=== PATIENT | male | born 1940 | race Caucasian/White ===

== ENCOUNTER 2016-11-23 14:59 | Emergency (ER) | payer BC, OTHER ==
[2016-11-23 13:54] LABS: BASOPHILS 1.3 %; EOSINOPHILS 4.1 %; EOSINOPHILS ABSOLUTE 0.31 10/3/uL (0.0-0.53); ER CBC TAT 0 Hrs 03 Mins; HEMATOCRIT 37.1 % (40.0-51.0); HEMOGLOBIN 12.9 g/dL (13.6-17.8); IMMATURE GRANULOCYTES 0.3 %; IMMATURE GRANULOCYTES ABSOLUTE 0.02 10/3/uL (0.0-0.11); LYMPHOCYTES 25.8 %; LYMPHOCYTES ABSOLUTE 1.93 10/3/uL (0.67-4.30); MEAN CORPUS HGB CONC 34.8 g/dL (32.0-36.0); MEAN CORPUSCULAR HEMOGLOB 30.6 pg (26.0-34.0); MEAN CORPUSCULAR VOLUME 87.9 fL (80-100); MEAN PLATELET VOLUME 11.3 fL (9.2-13.0); MONOCYTES 5.6 %; MONOCYTES ABSOLUTE 0.42 10/3/uL (0.21-1.20); NEUTROPHILS 62.9 %; NEUTROPHILS ABSOLUTE 4.71 10/3/uL (2.02-8.40); PLATELET COUNT 179 10/3/uL (150-400); RBC DISTRIBUTION WIDTH 13.2 % (12.0-16.0); RED CELL COUNT 4.22 10/6/uL (4.7-6.1); WHITE BLOOD CELLS 7.5 10/3/uL (4.5-10.5)
[2016-11-23 13:55] LABS: MANUAL DIFF NO %
[2016-11-23 14:03] LABS: INTERNATIONAL NORMAL RATI 2.8 UNITS (-); PARTIAL THROMBO TIME 34.2 SEC (22.5-37.2); PROTIME (NOT ORD) 29.5 SEC (12.0-14.5)
[2016-11-23 14:17] LABS: BUN (BLOOD UREA NITROGEN) 8 MG/DL (6-23); CALCIUM, SERUM 9.2 MG/DL (8.5-10.4); CHEST PAIN PROFILE TAT 0 Hrs 26 Mins; CHLORIDE, SERUM 109 MMOL/L (96-112); CO2 (CARBON DIOXIDE) 28 MMOL/L (24-34); CREATININE 0.74 MG/DL (0.70-1.30); GFR AFRICAN AMERICAN 104 ML/MIN (>=60); GFR NON AFRICAN AMERICAN 90 ML/MIN (>=60); GLUCOSE, SERUM 124 MG/DL (60-99); POTASSIUM, SERUM 3.5 MMOL/L (3.5-5.3); SODIUM, SERUM 144 MMOL/L (135-148); TROPONIN I <0.02 NG/ML (<0.05)
[~2016-11-23 14:59] MED LIST: ACARBOSE50 MG OR; ACET500CAP PO; ALBUTEROL INHALER; AMB5 PO; ANTIVERT50 MG PO; ASAB PO; B1100 PO; BIST PO; C2 PO; CAPSAICIN TOP; CARD120 PO; CARDCD240 PO; CELEXA20 PO; CELEXA40 MG PO; CLA1000 MG PO; COREG12 PO; COUMADIN4 MG PO; CRESTOR20 MG PO; CRESTOR40 MG PO; D.O.S.100 MG PO; DRAMAMINE25 MG PO; ERYTHROMYCIN O3.5 G1 OPH; FLEX PO; FLOMAX4 PO; FLONASE NAS; FOLIC PO; FORTAMET1000 MG PO; FOSINOPRIL PO; FOSINOPRIL10 MG PO; GLUCOPHAGE1000 MG PO; GLUCOSE TAB PO; GLUCOTRO10 PO; GLUCPH PO; HALF81 PO; HERBS; HUMULIN N1 ML SC; IMDUR30 PO; INSNOV7030 SC; ISORDIL10 PO; JANTOVEN2.5 MG; JANTOVEN4 MG PO; KDUR20 PO; KLOR-CON M2020 MEQ PO; L20 PO; LANTUS SC; LIPITOR80 MG PO; LOP100 PO; LOP50 PO; LORT7 PO; MCZ125 PO; MCZ25 PO; MICRO-K10 MEQ PO; MONO10 PO; MONO20 PO; MONOKET PO; MULTIPLE VIT PO; NASAREL29 MCG NAS; NEUR300 PO; NITROSTAT0.4 MG SL; NORCO1 TAB PO; NORV5 PO; NOVOLOGMIX SC; NTG150 SL; PERI-COLACE1 TAB PO; PROAIR HFA INH; PROVHFA INH; SENNA PO; SENOKOTS PO; STOOL SOFTEN100 MG PO; SULAR PO; T PO; TEARS PLUS OPH; TEARS PURE OPH; TIGER BALM TOP; TRAZ100 PO; TRAZ50 PO; TRIXAICIN EX; VITAMINS; VITD PO; VOLTAREN1 % TOP; ZANTAC 150 PO; ZANTAC300 MG PO; ZOCOR40 PO; ZOL100 PO; ZYRTEC ALLGY10 MG PO; [UNRECOGNIZED DRUG - OTHER]; [UNRECOGNIZED DRUG - OTHER] OPH; [UNRECOGNIZED DRUG - OTHER] TOP
[2016-12-14] MEDS ORDERED: MULTIVIT/MIN PO (21:01)
[2016-12-14] MEDS ORDERED: VITAMIN D31000 UNIT PO (21:02)
[2016-12-14] MEDS ORDERED: ZOL100 PO (21:02)
[2016-12-14] MEDS ORDERED: HALF81 PO (21:02)
[2016-12-14] MEDS ORDERED: NORCO1 TAB PO (21:02)
[2016-12-14] MEDS ORDERED: MCZ25 PO (21:02)
[2016-12-14] MEDS ORDERED: DSS PO (21:03)
[2016-12-14] MEDS ORDERED: IMDUR30 PO (21:03)
[2016-12-14] MEDS ORDERED: COREG12 PO (21:03)
[2016-12-14] MEDS ORDERED: ZYRTEC ALLGY10 MG PO (21:03)
[2016-12-14] MEDS ORDERED: SENTAB PO (21:03)
[2016-12-14] MEDS ORDERED: CRESTOR20 MG PO (21:04)
[2016-12-14] MEDS ORDERED: LANTUS SC (21:04)
[2016-12-14] MEDS ORDERED: KLOR-CON M2020 MEQ PO (21:04)
[2016-12-14] MEDS ORDERED: FLONASE NAS (21:05)
[2016-12-14] MEDS ORDERED: NITROSTAT0.4 MG SL (21:05)
[2016-12-14] MEDS ORDERED: NEUR300 PO (21:05)
[2016-12-14] MEDS ORDERED: REFRESH OPH (21:06)
[2016-12-14] MEDS ORDERED: PROVHFA INH (21:06)
[2016-12-14] MEDS ORDERED: ACET500CAP PO (21:06)
[2016-12-14] MEDS ORDERED: COUMADIN6 MG PO (21:07)
[2016-12-14] MEDS ORDERED: C1 PO (21:07)
[2016-12-16] MEDS ORDERED: MUCINEX600 MG PO (17:52)
[2016-12-16] MEDS ORDERED: VOLTAREN1 % TOP (17:55)
[2017-03-20] MEDS ORDERED: COUMADIN6 MG PO (20:18)
[2017-03-20] MEDS ORDERED: CRESTOR20 MG PO (20:19)
[2017-03-20] MEDS ORDERED: IMDUR60 PO (20:20)
[2017-03-20] MEDS ORDERED: NORV10 PO (20:20)
[2017-03-20] MEDS ORDERED: AT25 PO (20:23)
[2017-03-21] MEDS ORDERED: NORCO1 TA1 PO (15:07)
== END 2016-11-23 15:40 | disposition home or self-care (01) ==
LOC: ER 14:59
PROVIDERS: Nurse Practitioner Acute Care
DX: R07.89 Other chest pain (principal); I10 Essential (primary) hypertension; E11.9 Type 2 diabetes mellitus without complications; I48.91 Unspecified atrial fibrillation; Z95.1 Presence of aortocoronary bypass graft; Z88.0 Allergy status to penicillin; Z88.8 Allergy status to other drugs, medicaments and biological substances; Z79.01 Long term (current) use of anticoagulants; Z79.82 Long term (current) use of aspirin; Z79.4 Long term (current) use of insulin; Z79.899 Other long term (current) drug therapy
CPT/HCPCS: 71010; 80048; 83735; 84484; 85025; 85610; 85730; 93005; 99285

== ENCOUNTER 2016-11-24 00:54 | Emergency (ER) | payer OTHER, BC ==
[2016-11-24 00:51] LABS: BASOPHILS 1.6 %; BASOPHILS ABSOLUTE 0.12 10/3/uL (0.0-0.16); EOSINOPHILS 3.8 %; EOSINOPHILS ABSOLUTE 0.29 10/3/uL (0.0-0.53); ER CBC TAT 0 Hrs 04 MinsNP; HEMATOCRIT 38.7 % (40.0-51.0); HEMOGLOBIN 13.6 g/dL (13.6-17.8); IMMATURE GRANULOCYTES 0.1 %; IMMATURE GRANULOCYTES ABSOLUTE 0.01 10/3/uL (0.0-0.11); LYMPHOCYTES 43.4 %; LYMPHOCYTES ABSOLUTE 3.35 10/3/uL (0.67-4.30); MANUAL DIFF NO %; MEAN CORPUS HGB CONC 35.1 g/dL (32.0-36.0); MEAN CORPUSCULAR HEMOGLOB 30.7 pg (26.0-34.0); MEAN CORPUSCULAR VOLUME 87.4 fL (80-100); MEAN PLATELET VOLUME 11.3 fL (9.2-13.0); MONOCYTES 6.3 %; MONOCYTES ABSOLUTE 0.49 10/3/uL (0.21-1.20); NEUTROPHILS 44.8 %; NEUTROPHILS ABSOLUTE 3.46 10/3/uL (2.02-8.40); PLATELET COUNT 190 10/3/uL (150-400); RBC DISTRIBUTION WIDTH 13.1 % (12.0-16.0); RED CELL COUNT 4.43 10/6/uL (4.7-6.1); WHITE BLOOD CELLS 7.7 10/3/uL (4.5-10.5)
[2016-11-24 01:08] LABS: ALBUMIN 3.8 G/DL (3.5-5.0); ALKALINE PHOSPHATASE 100 U/L (45-117); CALCIUM, SERUM 9.6 MG/DL (8.5-10.4); CHEST PAIN PROFILE TAT 0 Hrs 21 Mins; CHLORIDE, SERUM 107 MMOL/L (96-112); CO2 (CARBON DIOXIDE) 25 MMOL/L (24-34); CREATININE 0.96 MG/DL (0.70-1.30); DIRECT BILIRUBIN 0.1 MG/DL (0.0-0.4); GFR AFRICAN AMERICAN 89 ML/MIN (>=60); GFR NON AFRICAN AMERICAN 76 ML/MIN (>=60); INDIRECT BILIRUBIN(NOT ORDER) 0.5 MG/DL (0.1-0.9); POTASSIUM, SERUM 3.5 MMOL/L (3.5-5.3); SGOT(AST) 17 U/L (5-40); SGPT(ALT) 15 U/L (5-65); SODIUM, SERUM 141 MMOL/L (135-148); TOTAL BILIRUBIN 0.6 MG/DL (0-1.2); TOTAL PROTEIN 7.2 G/DL (6.0-8.5); TROPONIN I <0.02 NG/ML (<0.05)
[2016-11-24 01:09] LABS: BUN (BLOOD UREA NITROGEN) 12 MG/DL (6-23); GLUCOSE, SERUM 189 MG/DL (60-99)
[2016-12-14] MEDS ORDERED: MULTIVIT/MIN PO (21:01)
[2016-12-14] MEDS ORDERED: VITAMIN D31000 UNIT PO (21:02)
[2016-12-14] MEDS ORDERED: NORCO1 TAB PO (21:02)
[2016-12-14] MEDS ORDERED: HALF81 PO (21:02)
[2016-12-14] MEDS ORDERED: ZOL100 PO (21:02)
[2016-12-14] MEDS ORDERED: MCZ25 PO (21:02)
[2016-12-14] MEDS ORDERED: DSS PO (21:03)
[2016-12-14] MEDS ORDERED: SENTAB PO (21:03)
[2016-12-14] MEDS ORDERED: IMDUR30 PO (21:03)
[2016-12-14] MEDS ORDERED: ZYRTEC ALLGY10 MG PO (21:03)
[2016-12-14] MEDS ORDERED: COREG12 PO (21:03)
[2016-12-14] MEDS ORDERED: KLOR-CON M2020 MEQ PO (21:04)
[2016-12-14] MEDS ORDERED: CRESTOR20 MG PO (21:04)
[2016-12-14] MEDS ORDERED: LANTUS SC (21:04)
[2016-12-14] MEDS ORDERED: NITROSTAT0.4 MG SL (21:05)
[2016-12-14] MEDS ORDERED: NEUR300 PO (21:05)
[2016-12-14] MEDS ORDERED: FLONASE NAS (21:05)
[2016-12-14] MEDS ORDERED: PROVHFA INH (21:06)
[2016-12-14] MEDS ORDERED: ACET500CAP PO (21:06)
[2016-12-14] MEDS ORDERED: REFRESH OPH (21:06)
[2016-12-14] MEDS ORDERED: C1 PO (21:07)
[2016-12-14] MEDS ORDERED: COUMADIN6 MG PO (21:07)
[2016-12-16] MEDS ORDERED: MUCINEX600 MG PO (17:52)
[2016-12-16] MEDS ORDERED: VOLTAREN1 % TOP (17:55)
[2017-03-20] MEDS ORDERED: COUMADIN6 MG PO (20:18)
[2017-03-20] MEDS ORDERED: CRESTOR20 MG PO (20:19)
[2017-03-20] MEDS ORDERED: IMDUR60 PO (20:20)
[2017-03-20] MEDS ORDERED: NORV10 PO (20:20)
[2017-03-20] MEDS ORDERED: AT25 PO (20:23)
[2017-03-21] MEDS ORDERED: NORCO1 TA1 PO (15:07)
== END 2016-11-24 03:00 | disposition home or self-care (01) ==
LOC: ER 00:54
PROVIDERS: Nurse Practitioner Acute Care
DX: K80.80 Other cholelithiasis without obstruction (principal); I10 Essential (primary) hypertension; K21.9 Gastro-esophageal reflux disease without esophagitis; F32.9 Major depressive disorder, single episode, unspecified; E11.9 Type 2 diabetes mellitus without complications; I48.91 Unspecified atrial fibrillation; F17.200 Nicotine dependence, unspecified, uncomplicated; Z95.5 Presence of coronary angioplasty implant and graft; Z86.73 Personal history of transient ischemic attack (TIA), and cerebral infarction without residual deficits; Z88.5 Allergy status to narcotic agent; Z88.0 Allergy status to penicillin; Z79.899 Other long term (current) drug therapy; Z79.01 Long term (current) use of anticoagulants
CPT/HCPCS: 71010; 71275; 74175; 80048; 80076; 83690; 83735; 84484; 85025; 93005; 96374; 99285; J2270; J2405; Q9967

== ENCOUNTER 2016-12-19 15:09 | Inpatient (IN) | payer OTHER, BC ==
--- NOTE | ~2016-12-19 | DS ---
Discharge Summary [address] [place]. [address] NAME: HENRY SALGADO : 39 STATUS : ADM IN PAT#: [id number] AGE: 76 ADM/REG DATE : 12/19/16 MR#: [id number] REPORT SERV DATE: 12/24/16 DICTATED BY: HENRY OSMAN DATE: 12/24/16 REPORT STATUS : Draft TRANSCRIBED BY: MODL DATE: 12/24/16 ADMISSION DATE: 12/19/2016 DISCHARGE DATE: ADDENDUM: Addendum to job #[id number]. I spent 44 minutes today with the patient and with his discharge plan. DICTATED BY: Adamaris Alfaro/NAGA Henry Osman M.D. / [id number] CC: Adamaris Alfaro M.D.
--- NOTE | ~2016-12-19 | DS ---
Discharge Summary [facility] [address] [place]. [address] NAME: HENRY SALGADO : 39 STATUS : ADM IN PAT#: [id number] AGE: 76 ADM/REG DATE : 12/19/16 MR#: [id number] REPORT SERV DATE: 12/24/16 DICTATED BY: HENRY OSMAN DATE: 12/24/16 REPORT STATUS : Draft TRANSCRIBED BY: MODL DATE: 12/24/16 ADMISSION DATE: 12/19/2016 DISCHARGE DATE: 12/24/2016 CONSULTANTS: Dr. Bernardino Cuevas, Cardiology; Joy Amaro, nurse practitioner for Neurology. DISCHARGE DIAGNOSES: 1. Multiple falls. 2. Orthostatic hypotension, probably due to autonomic neuropathy related to diabetes. 3. Acute on chronic gait ataxia, probably related to peripheral neuropathy and prior stroke, 2006. 4. Paroxysmal atrial fibrillation. 5. Coronary artery bypass in 2007 with bovine aortic valve replacement and mitral valve repair. 6. Obstructive sleep apnea, not wearing CPAP. 7. Recent community-acquired pneumonia. 8. Diabetes mellitus with peripheral neuropathy and A1c of 7.4% and suspected autonomic neuropathy. 9. Peripheral arterial disease with previous left carotid endarterectomy. 10.Stroke, 2006. 11.Diffuse idiopathic skeletal hyperostosis. 12.Blurry vision, right eye, localized, since October. Suspect retinal etiology. 13.History of major depression and report of recent inpatient hospitalization in [place], [place] for possible suicidal ideation. 14.History of gastroesophageal reflux and polyps. HISTORY: This gentleman has been in the hospital multiple times this year. He was first in in August for chest pain, then in October he had migraine-like headache with visual problems localized to his right eye, then in early November he was hospitalized at [facility] with gait ataxia worsening, then he went to rehab, but was sent back to us because he was having falls and suspected orthostatic hypotension and that is this particular hospitalization. He was sent to us from [facility], where he had several falls, one reported with an injury to the head. No written reports were sent with him from the facility. He was referred to our team for inpatient care and evaluation. On 12/13/2016, when he was at [facility], he had an MRI of the brain, which revealed [id number] diffuse atrophy and deep white matter changes, but no acute abnormalities. During this current hospitalization, he had a CT scan of the brain without contrast in the emergency room, which again revealed no acute intracranial abnormalities with mild diffuse atrophy. He also had MRI of his cervical spine done on 12/20/2016, showing at C3-4 there is a left-sided osteophyte with herniation into the central canal with mild cord compression and extension into the left neural foramina. Small herniation at C6-7, but not felt to be significant. He was seen by Neurology, and they felt that his gait unsteadiness was probably due to a Discharge Summary [place] [id number] [facility] [place]. [address] NAME: HENRY SALGADO : 38 STATUS : ADM IN [facility]#: [id number] AGE: 76 ADM/REG DATE : 12/19/16 MR#: [id number] REPORT SERV DATE: 12/24/16 DICTATED BY: HENRY OSMAN DATE: 12/24/16 REPORT STATUS : Draft TRANSCRIBED BY: MODJaren DATE: 12/24/16 combination of balance problems he has had after his stroke in 2006 as well as diabetic peripheral neuropathy and contributions from orthostatic hypotension that possibly was coming from autonomic dysfunction. Here at the hospital, he was noted to have fairly severe orthostatic hypotension repeatedly. Cardiology, Dr. Cuevas saw him and then Dr. Malhotra. They discontinued his amlodipine. Cardiology also discontinued his Monopril and his Imdur. They reduced his Coreg down to 3.125 mg b.i.d. The patient's orthostatic numbers improved, but did not completely resolve. Cardiology would like to leave him on a little bit of the Coreg though. Neurology wondered if he had some type of a chronic meningitis, so they held his Coumadin and he underwent a lumbar puncture on 12/23/2016. He had no evidence of meningitis with a total white count of 2. His CSF glucose was a little elevated at 86, but he is a diabetic. His CSF protein was 47.6, which is just mildly elevated above the normal of 15 to 45. Farzana ink stain was negative for encapsulated yeast. There was negative cryptococcal antigen. HSV, AFB, CSF, VDRL, and JIAN are still pending at this time, as his cytology. This will need to be followed up by his PCP as well as the rehab physician. Neurology has also ordered acetylcholine receptor antibody binding and blocking and modulating. Those are still pending at this time. Those will need follow up as well. Neurology is recommending a followup appointment with neurologist, Dr. Erick Dunaway, in one to two months, for outpatient nerve conduction study and EMG. While here, the patient did have a moderate cough. His procalcitonin level was undetectable. His white blood count was initially 12.6, but then by the next day it was normal and stayed normal and Robitussin seemed to help dramatically with his cough. His chest x-ray on 12/19/2016 showed previous coronary bypass and a shallow inspiratory size, otherwise unremarkable. Repeat chest x-ray on 12/22/2016 again unremarkable. At the time of discharge, he is alert. He is oriented. He is calm. He does still needs at least two people to help him when he gets up at any time because sometimes his legs would just give way and sometimes he gets orthostatic and lightheaded. He did have one fall when he was seated on the side of the bed and leaned forward to reach for something and fell forward, had a low fall, a superficial bruise, no other injury. He is felt to need inpatient rehab as well as follow up with Neurology as well as followup of the above described labs that are pending. DISCHARGE MEDICATIONS: The patient is going to be restarted on his Coumadin 4 mg q.h.s. It was held for the last few days for him to get the lumbar puncture. Aspirin 81 mg daily; Voltaren 1% topical to hands and arms p.r.n.; Coreg has been reduced to 3.125 mg b.i.d.; vitamin D 1000 units daily; Colace 200 mg twice a day; Flonase nasal spray twice a day; Lasix 10 mg daily; gabapentin 300 mg t.i.d.; Mucinex 1200 mg q.12 hours; NovoLog sliding scale; Lantus 5 units twice a day; melatonin 3 mg at bedtime p.r.n.; multivitamin once a day; KCl 20 mEq daily; Zoloft 100 mg twice a day; DuoNeb q.6 hours p.r.n. shortness of breath; Tylenol 650 q.6 hours p.r.n. pain; Refresh eye drops p.r.n.; glucose tablets p.r.n. hypoglycemia; Robitussin p.r.n. cough; Fabens 10/325 q.6 hours p.r.n. pain, prescription for Discharge Summary [address] [place]. [address] NAME: HENRY SALGADO : 39 STATUS : ADM IN PAT#: [id number] AGE: 76 ADM/REG DATE : 12/19/16 MR#: [id number] REPORT SERV DATE: 12/24/16 DICTATED BY: HENRY OSMAN DATE: 12/24/16 REPORT STATUS : Draft TRANSCRIBED BY: JUSTYNAL DATE: 12/24/16 10 given, no refill; nitroglycerin 0.4 mg sublingual p.r.n. chest pain; Antivert 25 mg three times daily p.r.n. dizziness; ondansetron 4 mg t.i.d. p.r.n. nausea; Zyrtec 10 mg daily p.r.n.; Crestor 20 mg at bedtime. FOLLOWUP: The patient should follow up with the neurologist as described above. PCP and Rehab team of physicians to follow up the pending labs as mentioned above. Should also follow up with Dr. Emil Malhotra, his head of sales, in about three to four weeks. DICTATED BY: Henry Osman M.D. RSG/NAGA Henry Osman M.D. / [id number] CC: Adamaris Alfaro M.D. [facility] MD Emil Alejandro M.D. [facility]
--- NOTE | ~2016-12-19 | CN ---
Consultation Report [facility] [address] [place]. [address] NAME: HENRY SALGADO : 39 STATUS : ADM IN [facility]#: [id number] AGE: 76 ADM/REG DATE : 12/19/16 MR#: [id number] REPORT SERV DATE: 12/20/16 DICTATED BY: JOY DOBBS DATE: 12/20/16 REPORT STATUS : Draft TRANSCRIBED BY: MODL DATE: 12/20/16 CONSULTATION DATE OF CONSULTATION: 12/20/2016 REASON FOR CONSULTATION: Ataxia/falls. HOSPITALIST: Elvin Nicolas MD HISTORY OF PRESENT ILLNESS: The patient is a 76-year-old male, who was admitted to the hospital on the 12/19/2016 because of recent fall. The patient came from [facility] in [place] because of a fall. Apparently, he was in the bathroom and he fell backwards hitting his head and injuring his neck. He came to the hospital. He had a CT scan of the brain and also the C-spine, which showed no apparent injury. The patient was hospitalized because he has had multiple recurrent falls. The cause is unknown. The patient states that he fell backwards. The patient has been admitted several times over the last couple of months for chest pain, stroke like symptoms, twice for pneumonia, and again for stroke-like symptoms. The patient has had several MRIs of the brain, which have shown no acute strokes; however, the patient has had a stroke in the past. When questioned extensively, the patient mentions that he has had an ongoing headache. He has also had some neck pain and recently he has had fever with chills and rigors. He was admitted recently over at [facility] and diagnosed with bilateral pneumonia. The patient also mentions that he has had poor vision particularly in the right eye. It was suggested that he see an manager medical writing at his last admission in October. The patient states that he has not had time to do so. He also mentions that he has had some double vision particularly with the right eye. Along with the patient's headache, he has had some photophobia. He also mentions that he has vertiginous symptoms, particularly when he changes positions quickly. He states that the room seems to spin around and this makes him imbalanced. PAST MEDICAL HISTORY: Coronary artery disease, atrial fibrillation (on Coumadin therapy), aortic stenosis, rheumatic heart disease, hypertension (with labile orthostatics), peripheral vascular disease, cerebrovascular disease with recurrent TIAs and stroke, vertigo, unsteady gait with frequent falls, depression, anxiety, insomnia, peripheral neuropathy, diabetes mellitus type 2, obstructive sleep apnea, osteoarthritis, osteoporosis, chronic low back pain, degenerative disc disease, cholelithiasis, and migraine headaches. PAST SURGICAL HISTORY: Cardiac catheterization, aortic valve replacement, mitral valve repair, coronary artery bypass grafting in 2006, tonsillectomy, adenoidectomy, right ankle surgery with ORIF, bilateral cataract extraction with lens implantation, and left carotid endarterectomy in 2013. Consultation Report [place] [id number] [facility] [place]. [address] NAME: HENRY SALGADO : 39 STATUS : ADM IN [facility]#: [id number] AGE: 76 ADM/REG DATE : 12/19/16 MR#: [id number] REPORT SERV DATE: 12/20/16 DICTATED BY: JOY DOBBS DATE: 12/20/16 REPORT STATUS : Draft TRANSCRIBED BY: NAGA DATE: 12/20/16 HOME MEDICATION LIST: Includes Tylenol p.r.n., Proventil inhaler two puffs t.i.d. p.r.n., Norvasc 2.5 mg b.i.d., Refresh p.r.n., aspirin 81 mg daily, Coreg 6.25 mg daily, Zyrtec 10 mg daily, vitamin D 1000 units daily, Voltaren gel topically, Colace 200 mg b.i.d., Flonase nasal spray, Monopril 20 mg daily, Lasix 10 mg daily, Neurontin 300 mg t.i.d., Mucinex 1200 mg every 12 hours, Hartwick 10/325 mg q.6 hours p.r.n., NovoLog insulin a.c. and h.s., Lantus 5 units subcu b.i.d., Imdur 30 mg daily, Antivert 25 mg t.i.d., multivitamin daily, nitroglycerin or Nitrostat 0.4 mg sublingual p.r.n., potassium chloride 20 mEq daily, Crestor 20 mg at bedtime, Senokot two tabs twice a day, Zoloft 100 mg twice a day, Coumadin 4.5 mg daily, and Ambien 5 mg at bedtime. ALLERGIES: DILAUDID, PENICILLIN, AND EXTENDED RELEASE AMBIEN. SOCIAL HISTORY: The patient is . This is his second . He has four children. He is retired from the [email or web address]. He does not smoke, drink alcohol, or use illicits. FAMILY HISTORY: Unknown. REVIEW OF SYSTEMS: Please refer to HPI for pertinent positives. PHYSICAL EXAMINATION: GENERAL: The patient is a 76-year-old male, who stands 180.34 cm and weighs 96.67 kg. VITAL SIGNS: He is currently slightly febrile with a temperature of 99 degrees, heart rate 68, respiratory rate 16, O2 saturations on room air 98%, and blood pressure 132/62. NEUROLOGIC: The patient is alert. He is oriented x4. He is hard of hearing, but pleasant. He communicates appropriately. Pupils are 3 mm. PERRLA. Cranial nerves 2 through 12 are relatively intact. Funduscopic exam, positive red reflex bilaterally. Normal disc cup ratio. No nicking, hemorrhaging, or papillary edema. Vision via Agustina OD is 20/200 at best, OS is 20/40. Peripheral vision intact bilaterally. No cranial nerve deficits. He can move all extremities x4. There is slight ataxia with vgvsfp-bi-atth and ataxia bilaterally with yual-tj-evnc. No tremor, asterixis, dysmetria, or dysdiadochokinesis. Upper extremity strength is 4/5. Upper DTRs 2+ bilaterally. The patient reports diminished sensation on the right arm when compared to the left. Lower extremity strength is 4/5 bilaterally. Patellar reflexes 2+ bilaterally. Achilles unelicitable. Plantar reflexes are silent. When checking for neuropathy, position sense is not intact. Diminished vibratory sense up to the knees bilaterally. Diminished sensory sensation from the toes to the ankles and diminished temperature sensation from the toes to the ankles on the left and from the toe to above the ankles on the right. The patient can get out of the bed, but is very ataxic. He tends to fall backwards. Romberg is untestable. LABORATORY DATA: CBC is normal. BMP normal. Lipase 493. INR 2.9. CT of the brain without contrast, mild diffuse involutional changes. Consultation Report [place] [address] [place]. [address] NAME: HENRY SALGADO : 38 STATUS : ADM IN PAT#: [id number] AGE: 76 ADM/REG DATE : 12/19/16 MR#: [id number] REPORT SERV DATE: 12/20/16 DICTATED BY: JOY DOBBS DATE: 12/20/16 REPORT STATUS : Draft TRANSCRIBED BY: MODJaren DATE: 12/20/16 CT of the C-spine, degenerative disc disease, particularly C5-C6. MRI of the brain without contrast on 12/13/2016 showed ecyf-hj-ulblfxhr diffuse cerebral involutional changes. There are no acute changes. Chest x-ray negative for acute changes. ASSESSMENT/PLAN: 1. Severe ataxia. This is most likely multifactorial in nature. The patient has diabetic peripheral neuropathy. He has had multiple previous strokes. He has vertigo and probable dysautonomia from diabetes. He also has poor vision. a. At this point, we will have the nursing staff check orthostatic vital signs with heart rate q. shift and record them in the progress notes. The patient may need to be started on midodrine or Florinef for his dysautonomia. b. We will obtain an MRI of the C-spine with and without contrast to rule out cervical stenosis. c. The patient will undergo an LP per Radiology to rule out meningoencephalitis. d. We will send the patient for outpatient EMG nerve conduction studies. e. The patient will be placed on fall precautions. He is not to get up without help and asked the patient to see Ophthalmology on an outpatient basis. Thank you again for including us in consultation. We will follow with you. DILSHAD/NAGA Joy Dobbs DNP, [facility] / [id number] CC: Adamaris Alfaro M.D. Darshan D. Naik, MD
--- NOTE | ~2016-12-19 | HP ---
History And Physical [place] [id number] [facility] [place]. [address] NAME: HENRY SALGADO : 38 STATUS : ADM IN [facility]#: [id number] AGE: 76 ADM/REG DATE : 12/19/16 MR#: [id number] REPORT SERV DATE: 12/19/16 DICTATED BY: DEQUAN AMBROCIO DATE: 12/19/16 REPORT STATUS : Draft TRANSCRIBED BY: MODL DATE: 12/19/16 DATE OF ADMISSION: 12/19/2016 CHIEF COMPLAINT: Status post fall with head and neck trauma and dizziness at SNF. HISTORY OF PRESENT ILLNESS: Obtained from patient who is a rather very poor historian as well as patient's family, present at bedside and emergency room documents. Also, prior medical records available to us were thoroughly reviewed. According to the information available, the patient is a pleasant 76-year-old white man, apparently had multiple hospitalization over the last several months for different reason from chest pain to stroke- like symptom, twice to pneumonia, more recent being hospitalized from 12/12/2016 to 12/16/2016 at [facility] for stroke-like symptoms and bilateral pneumonia. He apparently was discharged on 12/16/2016 to rehab at [facility] for physical therapy rehab. At the rehab facility, the patient apparently had several falls, it is unclear if he had more than one yesterday, but apparently, last night, he had a fall and also this morning had a low fall with head injury and headache while in the bathroom. The patient does not remember exactly the events mostly because he is a poor historian, and in general, his memory seems to being not as good and part of the history is obtained from the patient's present at the bedside. There are no documented written reports from [facility] with the patient at this moment. The patient stated that he was in the bathroom washing his hands and then he started going backwards which according to his he was doing it a lot of times and being very unsteady and then he fell and hit the towel mallory and then on the floor. He denies at this moment any headache or neck pain, but apparently, at that time, the patient had complained of headache and head trauma, and because the patient is also on chronic anticoagulation on warfarin/Coumadin and has a history of atrial fibrillation/arrhythmia, the patient was referred to the emergency room department by EMS for further management and evaluation. Upon arrival in our emergency room, the patient was on a soft collar and was noticed to be close to his baseline with very symptomatic orthostatic vital sign changes. The formal orthostatic vital signs assessment showed not a significant change in his blood pressure or pulse, but the patient has become very symptomatic and very diaphoretic and lightheaded and dizzy, had to be put straight back in the stretcher. Later on, just like simply trying to stand up/seated at the side of his stretcher in the emergency room, dropped his blood pressure systolic to 60 and the heart rate has remained in the mid 50s throughout this time. He denies any chest pain, palpitations, or any other prodromal symptoms prior to this [facility] event [facility] the [facility]. He remained dizzy and very unsteady anytime when he tries to get up and move around. In the emergency room, investigation reveal a blood pressure around 96 systolic initially with a pulse of 57, but all the other trauma investigation had been negative. Because of the above presentation and his the past medical history, the patient was referred to the Hospitalist Service for further management and evaluation. PAST MEDICAL HISTORY: Extremely complicated and significant for coronary artery disease. He has been seeing Dr. Malhotra with [facility] and apparently had a cardiac catheterization in 08/30/2016. He has a history of arrhythmia with atrial fibrillation, chronic at baseline with chronic anticoagulation, on warfarin. He has a history of atrial stenosis and rheumatic heart disease, status post aortic valve replacement and mitral valve repair; History And Physical [address] [address] NAME: HENRY SALGADO : 38 STATUS : ADM IN [facility]#: [id number] AGE: 76 ADM/REG DATE : 12/19/16 MR#: [id number] REPORT SERV DATE: 12/19/16 DICTATED BY: DEQUAN AMBROCIO DATE: 12/19/16 REPORT STATUS : Draft TRANSCRIBED BY: NAGA DATE: 12/19/16 coronary artery disease, status post one vessel CABG in the past; history of hypertension, but also history of apparently labile blood pressure changes with significant orthostatic blood pressure changes; history of peripheral vascular disease. He has a history of recurrent stroke-like symptom with likely cerebrovascular disease with recurrent TIAs and CVAs. He was admitted in October 2016 under Hospitalist Service here at [facility] for what was called complicated migraine and treated with a "migraine cocktail" at that time. He was considered to have possible visual aura with blurred vision presentation. Note, at that time, significant workup was negative and repeated workup including MRI done again at this time in [facility] just in the last week was also negative for acute stroke. History of chronic vertigo and chronic unsteady gait and recurrent falls; history of depression and anxiety; history of insomnia; history of peripheral neuropathy; history of diabetes type 2, insulin dependent, with complications. Overall, improved blood sugar control. Last hemoglobin A1c 7.4% to 7.9%, history of hyperlipidemia, history of episodes of hypoglycemia with labile blood sugar changes, history of recent bilateral pneumonia as per discharge summary from [facility] with apparent bronchospasm and wheezing as well as chronic hypoxemic respiratory failure, at that time, requiring oxygen supplementation. History of obstructive sleep apnea, not certain if the patient is using home CPAP at night. History of chronic anticoagulation, on Coumadin. History of osteoarthritis and osteoporosis, chronic lower back pain, and degenerative disk disease. History of recent admission at the [facility] in [place], [place], at the beginning of November 2016 due to homicidal ideation towards his , apparently being there for five to six days, inpatient psychiatric evaluation and stabilization, presently on Zoloft since to control his symptoms. History of cholelithiasis with occasional symptomatic abdominal pain, nausea, and vomiting. PAST SURGICAL HISTORY: Significant for CABG one vessel disease in 2006 with aortic valve replacement and apparently mitral valve repair, tonsillectomy and adenoidectomy as a child, right ankle surgery with ORIF and metal hardware, circumcision in 1957, bilateral cataract surgery, left carotid endarterectomy in 2013, several cardiac catheterization last in 08/30/[address] Malhotra, his certified marine mechanic. FAMILY HISTORY: Significant for coronary artery disease and diabetes, hypertension. SOCIAL HISTORY: He is , with apparently his third since 1998. Four children. Retired from the [employer]. Denies tobacco abuse. Denies alcohol abuse. Denies illicit or recreational drug abuse. Presently retired. ALLERGIES: SIGNIFICANT FOR DILAUDID, PENICILLIN G, AND AMBIEN CR (APPARENTLY, THE PATIENT CAN TAKE SHORT-ACTING REGULAR RELEASE AMBIEN). MEDICATIONS AT HOME/OUTPATIENT: Most recently a prison facility. According to the list provided, the patient is supposed to take Tylenol 1000 mg p.o. q.6 hours p.r.n. fever, albuterol MDI (Proventil) two puffs t.i.d. p.r.n. shortness of breath, Norvasc 5 mg p.o. b.i.d., artificial tears one drop q.i.d. p.r.n. each eye for dryness, aspirin 81 mg p.o. daily, Coreg 12.5 mg p.o. b.i.d., Zyrtec 10 mg p.o. daily p.r.n. allergies, vitamin D3 of 1000 units p.o. daily, Voltaren gel topically 2 g to hand osteo and arthritis pain, Colace 200 mg p.o. b.i.d., doxycycline 100 mg p.o. b.i.d. for five more days to be finished History And Physical [address] [address] NAME: HENRY SALGADO : 39 STATUS : ADM IN PAT#: [id number] AGE: 76 ADM/REG DATE : 12/19/16 MR#: [id number] REPORT SERV DATE: 12/19/16 DICTATED BY: DEQUAN AMBROCIO DATE: 12/19/16 REPORT STATUS : Draft TRANSCRIBED BY: NAGA DATE: 12/19/16 12/21/2016, Flonase nasal spray one spray each nostril b.i.d., lisinopril 20 mg p.o. b.i.d., Lasix 10 mg p.o. daily, Neurontin 300 mg p.o. t.i.d., Mucinex 1200 mg p.o. q.12 hours, hydrocodone 10/325 one p.o. q.6 hours p.r.n. pain, NovoLog insulin according to sliding scale, Lantus insulin 5 units subcu b.i.d., Imdur 30 mg p.o. daily, Antivert 25 mg p.o. t.i.d., multiple vitamin with minerals one tablet p.o. daily, nitroglycerin sublingual 0.4 mg sublingual p.r.n. chest pain, potassium (KCl) 20 mEq p.o. daily, Crestor 20 mg p.o. q.h.s., Senokot tablet two tablets p.o. b.i.d., Zoloft 100 mg p.o. b.i.d., Coumadin 4.5 mg p.o. daily was as directed, Ambien 5 mg p.o. q.h.s. REVIEW OF SYSTEMS: As per H and P, otherwise negative in all review of systems. Please note that the comprehensive review of system was obtained and pertinent positives were including in the H and P. Please also note that the patient is a quite poor historian with very short memory span and poor recollection of more recent events. PHYSICAL EXAMINATION: GENERAL: Pleasant, cooperant, in no acute distress, becoming very symptomatic upon, attempts to mobilize and standing up. VITAL SIGNS: Upon arrival in the emergency room, blood pressure 96/50, pulse 57, respiratory rate 18, temperature 98.1, oxygen saturation 96% on 2 L by nasal cannula. Formal orthostatic vital signs changes were negative for orthostatic blood pressure and pulse change, but significant symptomatically with diaphoresis, significant lightheadedness and dizziness were produced. Later on, during his emergency room stay, attempt of the patient sitting at the side of the stretcher produces decreasing his blood pressure of 66 systolic as documented by the emergency room nurse. HEENT: With bilateral cataracts. Extraocular movements intact. Throat, mild erythema. No exudate. Dry mucosa. No signs of tenderness. Normocephalic. No overt obvious head trauma, markings, or bruises noticed or laceration noticed. NECK: Supple. No JVD. No bruits. No thyromegaly. No lymph nodes. LUNGS: Bilateral air entry with few bibasilar crackles with few scattered wheezes, partially cleared with coughing. Overall, good airway movement. HEART: Positive S1, S2. Regular rate and rhythm with frequent PVCs. Positive mitral regurgitation murmur at the apex. Positive aortic sclerosis murmur. PMI not displaced by palpation. ABDOMEN: Positive bowel sounds. Soft, nontender. No guarding. No hepatosplenomegaly. EXTREMITIES: Decreased range of motion. Osteoarthritic changes. No clubbing, no cyanosis, no edema. +2 pulses. No calf tenderness. NEUROLOGIC: Alert and oriented x3. Appropriate mood and affect with mild loss of recent memory, but otherwise grossly nonfocal. Cranial nerves II through XII are grossly intact. Motor strength 4 to 5 out of 5 symmetrical bilateral. Deep tendon reflexes 2 out of 2 symmetrical bilateral. Please note that the gait was not assessed due to the patient's significant symptoms and marked ataxia. BACK: With decreased range of motion. No focal localized tenderness. No CVA tenderness. SKIN: No bruises, no laceration, and no rashes. SIGNIFICANT LABORATORY DATA: 1. Chest x-ray (personal reading) showed chronic interstitial changes, no acute History And Physical [address] [address] NAME: HENRY SALGADO : 38 STATUS : ADM IN [facility]#: [id number] AGE: 76 ADM/REG DATE : 12/19/16 MR#: [id number] REPORT SERV DATE: 12/19/16 DICTATED BY: DEQUAN AMBROCIO DATE: 12/19/16 REPORT STATUS : Draft TRANSCRIBED BY: NAGA DATE: 12/19/[address] scan of the head/brain, by preliminary report from the emergency room, showed no acute intracranial pathology. No bleed. Mild diffuse cerebral involutional changes. 3. CT scan of the cervical spine showed no acute displacement or abnormality or fracture. 4. EKG (personal reading) showed normal sinus rhythm at 61 beats per minute with occasional PVCs. Old inferior wall IN. No acute ST elevation. White cells 12.6, hemoglobin 10.6, platelet count 304. INR 2.6. Sodium 140, potassium 5, chloride 106, bicarb 30, BUN 24, creatinine 0.86, glucose 163, calcium 8.6, magnesium 2.1. Troponin I less than 0.02. ASSESSMENT AND PLAN AND PROBLEM LIST: The patient is patient is a very complex 76-year-old white man with multiple admissions at least over the last six months with different complaints from cardiac, neurologic, and even psychiatric admission. Most recently, admitted at [facility] from 12/12/2016 to 12/16/2016 for "stroke-like symptoms" and pneumonia and discharged to rehab, re-sent to the emergency room for falls. IMPRESSION: 1. Cardiovascular:. a. Orthostatic hypotension. Quite asymptomatic. b. Bradycardia, arrhythmia with paroxysmal atrial fibrillation at baseline. c. Hypertension, essential hypertension by history. d. Coronary artery disease, status post prior coronary artery bypass graft in the past. e. Aortic valve replacement, status post mitral valve repair. f. Peripheral vascular disease, status post left carotid endarterectomy in the past. For all the above, the patient has been admitted on the Hospitalist Service. We are going to decrease some of his blood pressure medications. Continue gentle IV hydration and continue to monitor orthostatic vital signs including pulse and blood pressure. Recheck CK. Recheck troponin I. re-evaluate more recent 2D echo and cardiac catheterization and obtain a consultation on the patient's certified marine mechanic, Dr. Malhotra for consideration regarding his cardiovascular and antihypertensive medications adjustments. We are going to check also cortisol level as well. 2. Neurologic problem:. a. Dizziness and lightheadedness, recurrent. b. Cerebrovascular disease, status post recurrent transient ischemic attacks and recurrent admission at least for the last couple of months with symptoms suggesting "stroke-like symptoms.". c. Vertigo by history. d. Chronic unsteady gait and recurrent falls. e. Peripheral neuropathy, uncontrolled. f. Depression and anxiety. g. Insomnia. h. Possible mild cognitive impairment. i. Recent admission for presumed complex migraine with visual aura. For all the above, the patient is going to be consulted again by Neurology. Continue to monitor neurologic checks and continue to further assess orthostatic vital signs. The History And Physical [address] [address] NAME: HENRY SALGADO : 38 STATUS : ADM IN [facility]#: [id number] AGE: 76 ADM/REG DATE : 12/19/16 MR#: [id number] REPORT SERV DATE: 12/19/16 DICTATED BY: DEQUAN AMBROCIO DATE: 12/19/16 REPORT STATUS : Draft TRANSCRIBED BY: MODL DATE: 12/19/16 patient had a recent laboratory check including vitamin B12, folate, TSH all within normal limits. We are going to continue Neurontin and provide emotional support. Use p.r.n. Xanax for anxiety. We are going to discontinue Ambien even though the patient has been using it for some time due to potential for causing more confusion on his symptoms. Recommended to resume physical therapy and rehabilitation for his chronic unsteady gait and falls. 3. Endocrinologic problem:. a. Diabetes type 2, insulin dependent with complications, lately better controlled with improvement of his A1c. We are going to continue small dose of Levemir as well as sliding scale NovoLog. b. History of hypoglycemic with labile blood sugars. Continue to monitor closely. c. Hyperlipidemia, mixed type. Continue statin and medications. Low- cholesterol diet. 4. For pulmonary with:. a. Acute on chronic hypoxemic respiratory failure. Apparently, at this moment, the patient requiring oxygen supplementation. b. Recent admission and treatment for pneumonia as per discharge summary. We are going to finish the antibiotic treatment and continue symptomatic treatment. c. Obstructive sleep apnea. Reinforce compliance with his CPAP machine which was in 2002. d. Bronchospasm reactive airway disease. Continue bronchodilator therapy. e. Osteoarthritis, osteoporosis, deconditioning and debilitation. Continue adequate pain control and physical therapy. 5. Chronic anticoagulation, on Coumadin. Continue warfarin for now with a target INR between 2 and 3. Several leukocytosis, possible reactive and anemia close to the baseline. Continue to monitor clinically for now. 6. Status post fall with head and neck trauma with negative initial workup in the emergency room. PROGNOSIS: Moderate to good for this admission, rather poor in medium and long-term. Discussed with the patient and the patient's present at bedside. Questions were answered in full. Please note, also the written H and P, and written orders and instructions. Please note that the patient is a full code at this moment as discussed with the patient at bedside. RF/NAGA Dequan Ambrocio M.D. / [id number] CC: Donald Maxwell M.D. History And Physical [address] [address] NAME: HENRY SALGADO : 38 STATUS : ADM IN [facility]#: [id number] AGE: 76 ADM/REG DATE : 12/19/16 MR#: [id number] REPORT SERV DATE: 12/19/16 DICTATED BY: DEQUAN AMBROCIO ION DATE: 12/19/16 REPORT STATUS : Draft TRANSCRIBED BY: MODL DATE: 12/19/16 Emil Malhotra M.D.
--- NOTE | ~2016-12-19 | CN ---
Consultation Report [place] [id number] [place]. [address] NAME: HENRY KABA : 38 STATUS : ADM IN [facility]#: [id number] AGE: 76 ADM/REG DATE : 12/19/16 MR#: [id number] REPORT SERV DATE: 12/20/16 DICTATED BY: BERNARDINO CUEVAS DATE: 12/20/16 REPORT STATUS : Draft TRANSCRIBED BY: MODJaren DATE: 12/20/16 DATE OF CONSULTATION: Mr. Henry Kaba is a 76-year-old male, who enters for orthostatic hypotension. CVD PHYSICIAN: Emil Malhotra M.D. HISTORY OF PRESENT ILLNESS: Mr. Kaba has had several episodes of dizziness and falling. At this time, he was getting up from the bathroom to the sink to brush his teeth when he passed completely out and hit his head. He came to the emergency room. No intracranial trauma was noted. He was admitted though for recurrent orthostatic hypotension with syncope. REVIEW OF SYSTEMS: Negative for chest pain, chest discomfort, palpitations. Negative for orthopnea and lower extremity edema. PAST MEDICAL HISTORY: 1. Aortic valve replacement in 2007. 2. Single-vessel coronary artery bypass grafting in 2007. 3. Nonischemic cardiomyopathy. 4. Hypertension. 5. Paroxysmal atrial fibrillation. 6. Coumadin. 7. Diabetes. SOCIAL HISTORY: He is moderately active. He does not drink or smoke. FAMILY HISTORY: Negative for early heart disease. PHYSICAL EXAMINATION: VITAL SIGNS: Blood pressure is 149/58, pulse is 67, he is afebrile, resting comfortably. GENERAL: Resting comfortably, nutritional status appears adequate. EYES: PERRLA. LUNGS: No labored use of accessory muscles. Without rales or wheezes. COR: PMI is not displaced. No thrills or heaves. NL S1 and S2. No S3, murmur, click or rub. PULSES: Carotids without bruits. ABD: +BS, nontender. EXT: No cyanosis, clubbing or edema. SKIN: No petechiae. NEURO: Alert and oriented. Does not appear anxious or depressed. ASSESSMENT: At this time, with his symptomatic orthostatic hypotension, I would discontinue the amlodipine and if necessary will maximize carvedilol with a history of coronary artery Consultation Report [address] [place]. [address] NAME: HENRY KABA : 38 STATUS : ADM IN PAT#: [id number] AGE: 76 ADM/REG DATE : 12/19/16 MR#: [id number] REPORT SERV DATE: 12/20/16 DICTATED BY: BERNARDINO CUEVAS DATE: 12/20/16 REPORT STATUS : Draft TRANSCRIBED BY: MODL DATE: 12/20/16 disease and left ventricular dysfunction. GG/NAGA Bernardino Cuevas M.D. / [id number] CC: Adamaris Alfaro M.D.
--- NOTE | ~2016-12-19 | CN ---
Consultation Report [place] [address] [place]. [address] NAME: HENRY SALGADO : 38 STATUS : ADM IN PAT#: [id number] AGE: 76 ADM/REG DATE : 12/19/16 MR#: [id number] REPORT SERV DATE: 12/24/16 DICTATED BY: KELLY TOBIN II DATE: 12/24/16 REPORT STATUS : Draft TRANSCRIBED BY: MODL DATE: 12/24/16 CONSULTATION NOTE. DATE OF CONSULTATION: 12/23/2016 CHIEF COMPLAINT: Unsteadiness. 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 He has had some recent falls also. He has been evaluated also by [facility]. He also is a cardiac patient. PAST MEDICAL HISTORY: 1. Coronary artery disease. 2. Atrial fibrillation. 3. Atrial stenosis. 4. Hypertension. 5. CVAs. 6. Vertigo. 7. Unsteady gait. 8. Peripheral neuropathy. 9. Osteoporosis. 10.Degenerative disc disease. SOCIAL HISTORY: He is , has several kids. REVIEW OF SYSTEMS: Denies any bowel or bladder changes. IMAGING STUDIES: CT scan the brain does not show any obvious acute process. CT cervical spine shows some degenerative disc disease at C5-6. MRI of the brain also does not show any obvious acute changes. ASSESSMENT AND PLAN: Ataxia which likely is multifactorial. I agree with Neurology and I have discussed it with Joy Amaro. The patient does have peripheral neuropathy. He has had previous strokes and vertigo. We will go ahead and check the MRI of the cervical spine and continue to observe him during the hospital. This could very well be cervical myelopathy, but again there is a fairly complicated picture given his other comorbidities including neuropathy. Consultation Report [place] [address] [place]. [address] NAME: HENRY SALGADO : 38 STATUS : ADM IN PAT#: [id number] AGE: 76 ADM/REG DATE : 12/19/16 MR#: [id number] REPORT SERV DATE: 12/24/16 DICTATED BY: KELLY TOBIN II DATE: 12/24/16 REPORT STATUS : Draft TRANSCRIBED BY: MODL DATE: 12/24/16 MANUEL/NAGA Kelly Tobin II, M.D. / [id number] CC: Adamaris Alfaro M.D.
[2016-12-19 14:22] LABS: BASOPHILS 0.8 %; EOSINOPHILS 6.7 %; EOSINOPHILS ABSOLUTE 0.85 10/3/uL (0.0-0.53); ER CBC TAT 0 Hrs 03 Mins; HEMATOCRIT 31.9 % (40.0-51.0); HEMOGLOBIN 10.6 g/dL (13.6-17.8); IMMATURE GRANULOCYTES 2.4 %; LYMPHOCYTES 19.7 %; LYMPHOCYTES ABSOLUTE 2.49 10/3/uL (0.67-4.30); MEAN CORPUS HGB CONC 33.2 g/dL (32.0-36.0); MEAN CORPUSCULAR VOLUME 90.4 fL (80-100); MEAN PLATELET VOLUME 10.2 fL (9.2-13.0); MONOCYTES 10.4 %; MONOCYTES ABSOLUTE 1.31 10/3/uL (0.21-1.20); NEUTROPHILS ABSOLUTE 7.58 10/3/uL (2.02-8.40); RBC DISTRIBUTION WIDTH 13.5 % (12.0-16.0); RED CELL COUNT 3.53 10/6/uL (4.7-6.1); WHITE BLOOD CELLS 12.6 10/3/uL (4.5-10.5)
[2016-12-19 14:23] LABS: MANUAL DIFF NO %; PLATELET COUNT 304 10/3/uL (150-400)
[2016-12-19 14:31] LABS: INTERNATIONAL NORMAL RATI 2.6 UNITS (-); PARTIAL THROMBO TIME 54.4 SEC (22.5-37.2); PROTIME (NOT ORD) 27.3 SEC (12.0-14.5)
[2016-12-19 14:37] LABS: BUN (BLOOD UREA NITROGEN) 24 MG/DL (6-23); CALCIUM, SERUM 8.6 MG/DL (8.5-10.4); CHEST PAIN PROFILE TAT 0 Hrs 18 Mins; CHLORIDE, SERUM 106 MMOL/L (96-112); CO2 (CARBON DIOXIDE) 30 MMOL/L (24-34); CREATININE 0.86 MG/DL (0.70-1.30); GFR AFRICAN AMERICAN 97 ML/MIN (>=60); GFR NON AFRICAN AMERICAN 84 ML/MIN (>=60); SODIUM, SERUM 140 MMOL/L (135-148); TROPONIN I <0.02 NG/ML (<0.05)
[2016-12-19 14:38] LABS: GLUCOSE, SERUM 163 MG/DL (60-99)
[~2016-12-19 15:09] MED LIST changes: +C1 PO; +COUMADIN6 MG PO; +DSS PO; +MUCINEX600 MG PO; +MULTIVIT/MIN PO; +REFRESH OPH; +SENTAB PO; +VITAMIN D31000 UNIT PO
[2016-12-19] MEDS ORDERED: MONODOX100 MG PO (16:31)
[2016-12-19] MEDS ORDERED: NOVOLOG SC (16:35)
[2016-12-19] MEDS ORDERED: MONO10 PO (16:40)
[2016-12-19] MEDS ORDERED: NORV5 PO (16:40)
[2016-12-19] MEDS ORDERED: NORCO1 TAB PO (16:40)
[2016-12-19] MEDS ORDERED: AMB5 PO (16:40)
[2016-12-19] MEDS ORDERED: L20 PO (16:40)
[2016-12-19 21:34] LABS: ALBUMIN 2.7 G/DL (3.5-5.0); DIRECT BILIRUBIN 0.1 MG/DL (0.0-0.4); INDIRECT BILIRUBIN(NOT ORDER) 0.4 MG/DL (0.1-0.9); SGOT(AST) 17 U/L (5-40); SGPT(ALT) 20 U/L (5-65); TOTAL BILIRUBIN 0.5 MG/DL (0-1.2); TOTAL PROTEIN 6.1 G/DL (6.0-8.5)
[2016-12-19 21:35] LABS: ALKALINE PHOSPHATASE 69 U/L (45-117); CK-MB 0.9 NG/ML; CPK 67 U/L (0-200); PHOSPHORUS, SERUM 4.2 MG/DL (2.5-4.5)
[2016-12-19 21:50] LABS: PROCALCITONIN <0.05 ng/mL (<0.5)
[2016-12-20 06:20] LABS: BASOPHILS 0.6 %; BASOPHILS ABSOLUTE 0.06 10/3/uL (0.0-0.16); EOSINOPHILS 7.1 %; EOSINOPHILS ABSOLUTE 0.69 10/3/uL (0.0-0.53); HEMATOCRIT 32.1 % (40.0-51.0); HEMOGLOBIN 10.9 g/dL (13.6-17.8); IMMATURE GRANULOCYTES 1.8 %; IMMATURE GRANULOCYTES ABSOLUTE 0.17 10/3/uL (0.0-0.11); LYMPHOCYTES 19.9 %; LYMPHOCYTES ABSOLUTE 1.92 10/3/uL (0.67-4.30); MANUAL DIFF NO %; MEAN CORPUSCULAR HEMOGLOB 30.6 pg (26.0-34.0); MEAN CORPUSCULAR VOLUME 90.2 fL (80-100); MEAN PLATELET VOLUME 10.2 fL (9.2-13.0); MONOCYTES 9.9 %; MONOCYTES ABSOLUTE 0.96 10/3/uL (0.21-1.20); NEUTROPHILS 60.7 %; NEUTROPHILS ABSOLUTE 5.86 10/3/uL (2.02-8.40); PLATELET COUNT 294 10/3/uL (150-400); RBC DISTRIBUTION WIDTH 13.2 % (12.0-16.0); RED CELL COUNT 3.56 10/6/uL (4.7-6.1); WHITE BLOOD CELLS 9.7 10/3/uL (4.5-10.5)
[2016-12-20 06:31] LABS: INTERNATIONAL NORMAL RATI 2.9 UNITS (-); PROTIME (NOT ORD) 29.8 SEC (12.0-14.5)
[2016-12-20 06:39] LABS: ALBUMIN 2.6 G/DL (3.5-5.0); CALCIUM, SERUM 8.5 MG/DL (8.5-10.4); CHLORIDE, SERUM 109 MMOL/L (96-112); CO2 (CARBON DIOXIDE) 30 MMOL/L (24-34); CPK 63 U/L (0-200); CREATININE 0.71 MG/DL (0.70-1.30); GFR AFRICAN AMERICAN 105 ML/MIN (>=60); GFR NON AFRICAN AMERICAN 91 ML/MIN (>=60); PHOSPHORUS, SERUM 3.5 MG/DL (2.5-4.5); POTASSIUM, SERUM 4.3 MMOL/L (3.5-5.3); SODIUM, SERUM 143 MMOL/L (135-148); TROPONIN I <0.02 NG/ML (<0.05)
[2016-12-20 06:40] LABS: BUN (BLOOD UREA NITROGEN) 18 MG/DL (6-23); CK-MB 1.1 NG/ML; GLUCOSE, SERUM 111 MG/DL (60-99)
[2016-12-20 08:09] LABS: ASCORBIC ACID (UR NOT ORDER) NEG (NEG); BILIRUBIN, URINE NEGATIVE (NEG); ER URINALYSIS TAT 0 Hrs 29 Mins; KETONE, URINE NEGATIVE (NEG); LEUKOCYTE ESTERASE(NOT OR NEG (NEG); NITRITE (URINE) NEG (NEG); WBC (NOT ORDERED) (RFLEX) 1 (0-5)
[2016-12-21 06:15] LABS: BASOPHILS 0.5 %; BASOPHILS ABSOLUTE 0.04 10/3/uL (0.0-0.16); EOSINOPHILS 5.8 %; HEMATOCRIT 32.9 % (40.0-51.0); IMMATURE GRANULOCYTES 1.4 %; IMMATURE GRANULOCYTES ABSOLUTE 0.12 10/3/uL (0.0-0.11); LYMPHOCYTES 22.4 %; LYMPHOCYTES ABSOLUTE 1.92 10/3/uL (0.67-4.30); MEAN CORPUS HGB CONC 33.4 g/dL (32.0-36.0); MEAN CORPUSCULAR HEMOGLOB 29.9 pg (26.0-34.0); MEAN CORPUSCULAR VOLUME 89.4 fL (80-100); MEAN PLATELET VOLUME 9.8 fL (9.2-13.0); MONOCYTES 7.6 %; MONOCYTES ABSOLUTE 0.65 10/3/uL (0.21-1.20); NEUTROPHILS 62.3 %; NEUTROPHILS ABSOLUTE 5.36 10/3/uL (2.02-8.40); PLATELET COUNT 299 10/3/uL (150-400); RBC DISTRIBUTION WIDTH 13.1 % (12.0-16.0); RED CELL COUNT 3.68 10/6/uL (4.7-6.1); WHITE BLOOD CELLS 8.6 10/3/uL (4.5-10.5)
[2016-12-21 06:17] LABS: MANUAL DIFF NO %
[2016-12-21 06:24] LABS: INTERNATIONAL NORMAL RATI 2.8 UNITS (-); PROTIME (NOT ORD) 29.2 SEC (12.0-14.5)
[2016-12-21 06:30] LABS: A/G RATIO 0.7 (0.7-1.9); ALBUMIN 2.6 G/DL (3.5-5.0); ALKALINE PHOSPHATASE 75 U/L (45-117); BUN (BLOOD UREA NITROGEN) 11 MG/DL (6-23); CALCIUM, SERUM 8.6 MG/DL (8.5-10.4); CHLORIDE, SERUM 110 MMOL/L (96-112); CO2 (CARBON DIOXIDE) 31 MMOL/L (24-34); CREATININE 0.66 MG/DL (0.70-1.30); GFR AFRICAN AMERICAN 108 ML/MIN (>=60); GFR NON AFRICAN AMERICAN 93 ML/MIN (>=60); GLOBULIN 3.6 G/DL (2.5-4.1); GLUCOSE, SERUM 118 MG/DL (60-99); POTASSIUM, SERUM 4.1 MMOL/L (3.5-5.3); SGOT(AST) 14 U/L (5-40); SGPT(ALT) 16 U/L (5-65); SODIUM, SERUM 145 MMOL/L (135-148); TOTAL BILIRUBIN 0.4 MG/DL (0-1.2); TOTAL PROTEIN 6.2 G/DL (6.0-8.5)
[2016-12-22 04:57] LABS: BASOPHILS 0.9 %; BASOPHILS ABSOLUTE 0.08 10/3/uL (0.0-0.16); EOSINOPHILS 3.8 %; EOSINOPHILS ABSOLUTE 0.35 10/3/uL (0.0-0.53); HEMATOCRIT 33.1 % (40.0-51.0); IMMATURE GRANULOCYTES ABSOLUTE 0.09 10/3/uL (0.0-0.11); LYMPHOCYTES 22.8 %; LYMPHOCYTES ABSOLUTE 2.08 10/3/uL (0.67-4.30); MEAN CORPUS HGB CONC 33.2 g/dL (32.0-36.0); MEAN CORPUSCULAR HEMOGLOB 30.1 pg (26.0-34.0); MEAN CORPUSCULAR VOLUME 90.4 fL (80-100); MEAN PLATELET VOLUME 9.7 fL (9.2-13.0); MONOCYTES 8.1 %; MONOCYTES ABSOLUTE 0.74 10/3/uL (0.21-1.20); NEUTROPHILS 63.4 %; NEUTROPHILS ABSOLUTE 5.78 10/3/uL (2.02-8.40); PLATELET COUNT 293 10/3/uL (150-400); RBC DISTRIBUTION WIDTH 13.2 % (12.0-16.0); RED CELL COUNT 3.66 10/6/uL (4.7-6.1); WHITE BLOOD CELLS 9.1 10/3/uL (4.5-10.5)
[2016-12-22 04:59] LABS: MANUAL DIFF NO %
[2016-12-22 05:02] LABS: INTERNATIONAL NORMAL RATI 2.1 UNITS (-)
[2016-12-22 05:04] LABS: PROTIME (NOT ORD) 23.2 SEC (12.0-14.5)
[2016-12-22 05:12] LABS: BUN (BLOOD UREA NITROGEN) 14 MG/DL (6-23); CALCIUM, SERUM 8.8 MG/DL (8.5-10.4); CHLORIDE, SERUM 110 MMOL/L (96-112); CO2 (CARBON DIOXIDE) 28 MMOL/L (24-34); GFR AFRICAN AMERICAN 100 ML/MIN (>=60); GFR NON AFRICAN AMERICAN 86 ML/MIN (>=60); GLUCOSE, SERUM 133 MG/DL (60-99); SODIUM, SERUM 143 MMOL/L (135-148)
[2016-12-22 09:25] LABS: PROCALCITONIN <0.05 ng/mL (<0.5)
[2016-12-23 05:00] LABS: BASOPHILS 0.9 %; BASOPHILS ABSOLUTE 0.08 10/3/uL (0.0-0.16); EOSINOPHILS 3.8 %; EOSINOPHILS ABSOLUTE 0.33 10/3/uL (0.0-0.53); HEMATOCRIT 33.2 % (40.0-51.0); HEMOGLOBIN 11.2 g/dL (13.6-17.8); IMMATURE GRANULOCYTES 0.7 %; IMMATURE GRANULOCYTES ABSOLUTE 0.06 10/3/uL (0.0-0.11); LYMPHOCYTES 25.4 %; LYMPHOCYTES ABSOLUTE 2.19 10/3/uL (0.67-4.30); MEAN CORPUS HGB CONC 33.7 g/dL (32.0-36.0); MEAN PLATELET VOLUME 9.8 fL (9.2-13.0); MONOCYTES 6.5 %; MONOCYTES ABSOLUTE 0.56 10/3/uL (0.21-1.20); NEUTROPHILS 62.7 %; NEUTROPHILS ABSOLUTE 5.41 10/3/uL (2.02-8.40); PLATELET COUNT 283 10/3/uL (150-400); RBC DISTRIBUTION WIDTH 13.2 % (12.0-16.0); RED CELL COUNT 3.73 10/6/uL (4.7-6.1); WHITE BLOOD CELLS 8.6 10/3/uL (4.5-10.5)
[2016-12-23 05:05] LABS: MANUAL DIFF NO %
[2016-12-23 05:07] LABS: INTERNATIONAL NORMAL RATI 1.5 UNITS (-)
[2016-12-23 16:14] LABS: TOTAL PROTEIN, CSF 47.6 MG/DL (15-45)
[2016-12-23 17:13] LABS: CSF APPEARANCE (NOT ORD) CLEAR (CLEAR); CSF BASO 0 % (NO REF RANGE); CSF COLOR (NOT ORD) COLORLESS (COLORLESS); CSF EOS 0 % (0-1); CSF LYMPH (NOT ORD) 77 % (28-96); CSF MONO 21 % (16-56); CSF RBC (NOT ORD) 23 MM3 (NO REFERENCE); CSF SEGS (NOT ORD) 2 % (0-7); CSF WBC (NOT ORD) 2 /uL (0-10); CSF XANTHROCHROMIA NEG (NEG)
[2016-12-24 06:18] LABS: INTERNATIONAL NORMAL RATI 1.5 UNITS (-); PROTIME (NOT ORD) 17.7 SEC (12.0-14.5)
[2016-12-27 17:55] LABS: HSV DNA TYPE 1 Not Detected (NOTDET); HSV DNA TYPE 2 Not Detected (NOTDET)
[2016-12-29 00:10] LABS: M.TB COMP PCR NON RESP NOT DETECTED (NOTDET)
[2017-03-20] MEDS ORDERED: COUMADIN6 MG PO (20:18)
[2017-03-20] MEDS ORDERED: CRESTOR20 MG PO (20:19)
[2017-03-20] MEDS ORDERED: IMDUR60 PO (20:20)
[2017-03-20] MEDS ORDERED: NORV10 PO (20:20)
[2017-03-20] MEDS ORDERED: AT25 PO (20:23)
[2017-03-21] MEDS ORDERED: NORCO1 TA1 PO (15:07)
== END 2016-12-24 21:29 | DRG 73 ==
LOC: ER 15:09 → 2SO 19:21
PROVIDERS: Hospitalist; Internal Medicine; Nurse Practitioner; Nurse Practitioner Family
PROC: 009U3ZX Drainage of Spinal Canal, Percutaneous Approach, Diagnostic (ICD-10-PCS; principal; 2016-12-23)
PROC: B01B1ZZ Fluoroscopy of Spinal Cord using Low Osmolar Contrast (ICD-10-PCS; 2016-12-23)
DX: E11.43 Type 2 diabetes mellitus with diabetic autonomic (poly)neuropathy (principal); J96.21 Acute and chronic respiratory failure with hypoxia; I48.0 Paroxysmal atrial fibrillation; E11.51 Type 2 diabetes mellitus with diabetic peripheral angiopathy without gangrene; R00.1 Bradycardia, unspecified; Z99.81 Dependence on supplemental oxygen; I10 Essential (primary) hypertension; G31.84 Mild cognitive impairment of uncertain or unknown etiology; I95.1 Orthostatic hypotension; I73.9 Peripheral vascular disease, unspecified; I25.10 Atherosclerotic heart disease of native coronary artery without angina pectoris; R26.81 Unsteadiness on feet; F32.9 Major depressive disorder, single episode, unspecified; F41.9 Anxiety disorder, unspecified; G47.00 Insomnia, unspecified; E78.2 Mixed hyperlipidemia; G47.33 Obstructive sleep apnea (adult) (pediatric); M19.90 Unspecified osteoarthritis, unspecified site; M50.321 Other cervical disc degeneration at C4-C5 level; M81.0 Age-related osteoporosis without current pathological fracture; J98.01 Acute bronchospasm; I47.9 Paroxysmal tachycardia, unspecified; W18.30XA Fall on same level, unspecified, initial encounter; M50.322 Other cervical disc degeneration at C5-C6 level; I35.0 Nonrheumatic aortic (valve) stenosis; H53.141 Visual discomfort, right eye; M48.10 Ankylosing hyperostosis [Forestier], site unspecified; Z95.1 Presence of aortocoronary bypass graft; Z95.2 Presence of prosthetic heart valve; Z79.01 Long term (current) use of anticoagulants; Z86.73 Personal history of transient ischemic attack (TIA), and cerebral infarction without residual deficits; Z91.81 History of falling; Y93.9 Activity, unspecified; Y92.002 Bathroom of unspecified non-institutional (private) residence as the place of occurrence of the external cause; Z98.890 Other specified postprocedural states; Z88.5 Allergy status to narcotic agent; Z88.0 Allergy status to penicillin
CPT/HCPCS: 62270; 70450; 71010; 72125; 72156; 77003; 80048; 80053; 80069; 80076; 81001; 82164; 82272; 82550; 82553; 82945; 82962; 83519; 83735; 83880; 84100; 84145; 84157; 84484; 85025; 85610; 85730; 86592; 87015; 87070; 87102; 87116; 87205; 87210; 87327; 87529; 87529-59; 87556; 88112; 89051; 93005; 94640; 97116-GP; 97162-GP; 97165-GO; 97535-GO; 99285; A9270-GY; A9577; J0360; J2405

== ENCOUNTER 2017-01-03 10:40 | Observation (INO) | payer OTHER, BC ==
--- NOTE | ~2017-01-03 | DS ---
Discharge Summary [address] [place]. [address] NAME: HENRY SALGADO : 38 STATUS : ADM Jed PAT#: [id number] AGE: 76 ADM/REG DATE : 01/03/17 MR#: [id number] REPORT SERV DATE: 01/04/17 DICTATED BY: MO LARIOS DATE: 01/04/17 REPORT STATUS : Draft TRANSCRIBED BY: MODL DATE: 01/04/17 ADMISSION DATE: 01/03/2017 DISCHARGE DATE: DISCHARGE DIAGNOSES: 1. Musculoskeletal chest pain. 2. Uncontrolled hypertension. 3. History of orthostasis and autonomic insufficiency with history of multiple falls and ataxia. 4. Paroxysmal atrial fibrillation, on chronic warfarin. 5. Diabetes mellitus. 6. Peripheral neuropathy with history of recurrent falls and ataxia. 7. SEYMOUR intolerant of CPAP. 8. CAD with history of CABG with catheterization in August 2016 which is essentially nonobstructive. 9. History of aortic valve replacement with bovine valve. 10.PAD. 11.Hyperlipidemia. 12.Hypertension. 13.Depression. HOSPITAL COURSE: The patient is a very pleasant 76-year-old white male, who was admitted with left-sided chest pain along with elevated blood pressure. Upon exam, it was noted that his chest pain was reproducible upon palpation of his left pectoral muscle. Blood pressure was initially elevated, then returned to a fairly normal level in the 150s over 70s in the past. We had to be very cautious with over lowering of his blood pressure as he tends to develop orthostasis and falls. His blood pressures were actually adjusted during his last hospital stay. He actually just left the hospital on 12/24/2016, with orthostasis and multiple falls. The patient had no additional pain on the morning of 01/04/2017. His blood pressure was stable. His troponins were negative x3. Electrolyte panel was normal. CBC was normal. Vital signs looked great and he was feeling better and prepared to return to a long-term facility for continued rehab. [place] that he was stable at this time. His EKG was normal without any acute ST-T wave changes. DISCHARGE FOLLOWUP: The patient should follow up as planned and continue physical therapy and rehab at the long-term facility. DISCHARGE MEDICATIONS: 1. Aspirin 81 mg p.o. daily. 2. Potassium chloride 20 mEq daily. 3. Lasix 20 mg daily. 4. Vitamin D 1000 units daily. 5. Zyrtec 10 daily. 6. Coumadin 4 mg at bedtime. 7. Zoloft 100 mg b.i.d. 8. Senokot 2 tabs b.i.d. Discharge Summary [facility] [address] [place]. [address] NAME: HENRY SALGADO : 38 STATUS : ADM Jed PAT#: [id number] AGE: 76 ADM/REG DATE : 01/03/17 MR#: [id number] REPORT SERV DATE: 01/04/17 DICTATED BY: MO LARIOS DATE: 01/04/17 REPORT STATUS : Draft TRANSCRIBED BY: NAGA DATE: 01/04/17 9. Theragran tab 1 daily at bedtime. 10.Levemir 5 units b.i.d. 11.Sliding scale insulin. 12.Guaifenesin 600 mg p.o. b.i.d. 13.Neurontin 300 mg p.o. t.i.d. 14.Flonase nasal spray, 1 spray in each nostril b.i.d. 15.Colace 200 mg b.i.d. 16.Coreg 3.125 mg tab b.i.d.; hold if systolic less than 100. 17.Lipitor 40 mg at bedtime. 18.Nitroglycerin 0.4 p.r.n. 19.Ambien 5 mg p.o. at bedtime p.r.n. 20.Vicodin 10/325 one tablet p.o. q.6 hours p.r.n. 21.Voltaren Gel 1% 2 g daily p.r.n. 22.Flexeril 5 mg p.o. q.8 hours p.r.n. 23.DuoNebs p.r.n. q.6 hours. 24.Liquid Tears p.r.n. 25.Tylenol 650 p.o. q.6 hours p.r.n. DICTATED BY: Adamaris Roman/NAGA Mo Larios M.D. / [id number] CC: Adamaris Montoya M.D.
--- NOTE | ~2017-01-03 | DS ---
Discharge Summary [facility] [address] [facility]. [address] NAME: HENRY SALGADO : 38 STATUS : DIS Jed PAT#: [id number] AGE: 76 ADM/REG DATE : 01/03/17 MR#: [id number] REPORT SERV DATE: 01/07/17 DICTATED BY: DATE: REPORT STATUS : Draft TRANSCRIBED BY: MODL DATE: 01/05/17 ADMISSION DATE: 01/03/2017 DISCHARGE DATE: 01/05/2017 ADDENDUM: DISCHARGE DIAGNOSIS: Please see discharge summary dictation by Dr. Zuleima Larios on 01/04/2017. The patient will be followed up by Dr. Maxwell in the next 10-14 days. The patient will be discharged to SNF for physical therapy and rehab on previous listed meds. The patient is to call if he has any changes in his health status or has any repeat episodes of hypertension, chest pain, or to call his PCP or present to the ER. DICTATED BY: ROSEMARY Carolina/NAGA Chika Kahn NP / [id number] CC: Adamaris Montoya M.D.
--- NOTE | ~2017-01-03 | DS ---
Discharge Summary [facility] [address] [place]. [address] NAME: HENRY SALGADO : 38 STATUS : DIS Jed PAT#: [id number] AGE: 76 ADM/REG DATE : 01/03/17 MR#: [id number] REPORT SERV DATE: 01/07/17 DICTATED BY: DATE: REPORT STATUS : Draft TRANSCRIBED BY: MODL DATE: 01/06/17 ADMISSION DATE: 01/03/2017 DISCHARGE DATE: 01/06/2017 ADDENDUM: To discharge summary. DISCHARGE DIAGNOSIS: Please see discharge summary dictation by Dr. Zuleima Larios on 01/04/2017. The patient will be followed up by Dr. Maxwell in the next 10 to 14 days. The patient will be discharged to [facility] for physical therapy and rehab on previously listed medications. The patient is to call if he has any changes in his health or any repeated episodes of hypertension, chest pain, or to call his PCP or present to the ER. The patient's discharged has been held up due to insurance concerns. DICTATED BY: Chika Kahn NP [facility]/NAGA Chika Kahn NP / [id number] CC: Adamaris Montoya M.D.
--- NOTE | ~2017-01-03 | HP ---
History And Physical [place] [id number] [facility] [place]. [address] NAME: HENRY SALGADO : 38 STATUS : ADM Jed PAT#: [id number] AGE: 76 ADM/REG DATE : 01/03/17 MR#: [id number] REPORT SERV DATE: 01/03/17 DICTATED BY: OM ANG DATE: 01/03/17 REPORT STATUS : Draft TRANSCRIBED BY: MODL DATE: 01/03/17 DATE OF ADMISSION: 01/03/2017 CHIEF COMPLAINT: Chest pain. HISTORY OF PRESENT ILLNESS: The patient is a very pleasant 76-year-old white male, who was actually just recently discharged from the hospital on 12/24/2016 after having multiple falls, orthostatic hypotension thought to be due to autonomic neuropathy secondary to diabetes, and also peripheral neuropathy. He was sent to [facility] for physical therapy and rehab, which he has been working aggressively with. He has been lifting weights and doing strength training, doing balance training, and has been very busy. He had particularly busy day yesterday and during his therapy, he developed some left-sided chest pain. They also noted his blood pressure was up over the last 24 hours. They are releasing him today because his blood pressure is up this morning. During his last stay, they had a lot of difficulties with orthostasis and he had multiple adjustments to his medical regimen to get him to a point where he could be discharged safely. After stopping a couple of his blood pressure medications and titrating his Coreg to the lowest dose, he seemed to be doing much better. The patient has a history of recurrent chest pain. He describes the chest pain as stabbing in quality and it is worse with any movement of his left arm and also worse on palpation. He actually had a fairly extensive cardiac workup in 08/2016, which included a cardiac cath as well as stress testing. Stress testing was negative, cardiac cath revealed nonobstructive disease, and there was no intervention recommended other than medical therapy. He has had no new cough. He has had no fevers or chills. PAST MEDICAL HISTORY: 1. CAD with history of single-vessel CABG. 2. Aortic stenosis, status post bovine AVR. 3. PAD/carotid stenosis with left carotid endarterectomy. 4. SEYMOUR, but intolerant of CPAP. 5. Peripheral neuropathy. 6. Paroxysmal atrial fibrillation, on chronic anticoagulation. 7. Diabetes mellitus. 8. Hyperlipidemia. 9. Hypertension. 10.Sleep apnea, noncompliant with CPAP. 11.Peripheral neuropathy. 12.Major depression with a previous psych stay. 13.GERD. 14.Colon polyps. 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 16.Gallstones. 17.Hiatal hernia. SURGICAL HISTORY: 1. He has had a CABG x1. 2. Aortic valve replacement with bovine valve. History And Physical [address] [address] NAME: HENRY SALGADO : 38 STATUS : ADM Jed PAT#: [id number] AGE: 76 ADM/REG DATE : 01/03/17 MR#: [id number] REPORT SERV DATE: 01/03/17 DICTATED BY: MO ANG DATE: 01/03/17 REPORT STATUS : Draft TRANSCRIBED BY: NAGA DATE: 01/03/17 3. Left carotid endarterectomy. 4. Circumcision. 5. Right ankle surgery. SOCIAL HISTORY: He is and has four children. He is retired. He does not smoke or drink. FAMILY HISTORY: Positive for CAD in his father. ALLERGIES: DILAUDID, AMBIEN CR, PENICILLIN. HOME MEDICATIONS: Reviewed and attached. REVIEW OF SYSTEMS: Full 10-point review of systems obtained, pertinent positives in the HPI. PHYSICAL EXAMINATION: VITAL SIGNS: Current vital signs, blood pressure 150s over 70s, respiratory rate 20, sats are 95%, temperature is 97.2, pulse is 65. GENERAL: A well-developed white male, in no obvious distress. HEENT: Normocephalic, atraumatic. Throat is clear. NECK: Supple. HEART: Regular rate and rhythm. LUNGS: Grossly clear. CHEST: Chest wall was examined. He has reproducible pain upon palpation of the left pectoral muscle, which is just like the pain he is experiencing. ABDOMEN: Soft, nondistended. Bowel sounds are present. EXTREMITIES: Warm and dry. Pulses are 2+ at the feet. SKIN: Intact without obvious rash or lesion. NEURO: He is alert. He has symmetrical strength and tone in all four extremities. PSYCH: Mood and affect are appropriate. LAB AND X-RAY: EKG shows sinus rhythm, first-degree AV block. No acute ST-T wave changes. Chemistry panel, basic metabolic panel is normal. Troponin is 0.02. Mag is 1.7. Chest x- ray is unrevealing. CBC is unremarkable other than a hemoglobin of 11 and his INR is 2.3. ASSESSMENT/PLAN: 1. Chest pain, left pectoral. This is easily reproduced upon palpation. I suspect this is not cardiac. His EKG is normal. His initial set of enzymes are negative and he had the pain following his physical therapy session. Would recommend simply monitoring him and place him on a monitored bed overnight. Obtain two more sets of cardiac enzymes just for completeness and give him some Tylenol p.r.n. for pain. 2. Uncontrolled hypertension. He had some transdermal nitroglycerin paste placed and his blood pressure is down to the 150s over 70s. I am hesitant to adjust his medication regimen again. He seemed to be on a fairly good regimen when he left. Yes, his systolics were in the 150s, but this is in an effort to avoid orthostasis as he has had several falls. I am going to see what his blood pressure does overnight before we make History And Physical [address] [address] NAME: HENRY SALGADO : 38 STATUS : ADM Jed PAT#: [id number] AGE: 76 ADM/REG DATE : 01/03/17 MR#: [id number] REPORT SERV DATE: 01/03/17 DICTATED BY: MO ANG DATE: 01/03/17 REPORT STATUS : Draft TRANSCRIBED BY: NAGA DATE: 01/03/17 any adjustments to his regimen. If we do adjust anything, we could consider increasing his Coreg ever so slightly. We will check orthostatic blood pressure and pulse in the morning. 3. Paroxysmal atrial fibrillation, on warfarin. I am going to reduce his dose to 4 mg a day. His INR is 2.3. 4. History of diabetes. Add sliding scale. 5. History of neuropathy as well as orthostatic hypotension and frequent falls. Again we will be very judicious about adjusting his blood pressure medicines. 6. History of obstructive sleep apnea, intolerant of CPAP. 7. History of coronary artery disease with single-vessel CABG. He had a recent catheterization in August as well as stress testing. 8. History of aortic valve replacement with bovine valve. 9. Deep venous thrombosis prophylaxis. He is already fully anticoagulated. 10.Disposition pending above. KLJ/MODL Mo Ang M.D. / [id number] CC: Adamaris Singh M.D. Bradley Keel, DO
[~2017-01-03 10:40] MED LIST changes: +MONODOX100 MG PO; +NOVOLOG SC
[2017-01-03 11:57] LABS: BASOPHILS 1.1 %; BASOPHILS ABSOLUTE 0.07 10/3/uL (0.0-0.16); EOSINOPHILS 3.6 %; EOSINOPHILS ABSOLUTE 0.23 10/3/uL (0.0-0.53); ER CBC TAT 0 Hrs 11 Mins; HEMATOCRIT 33.8 % (40.0-51.0); HEMOGLOBIN 11.3 g/dL (13.6-17.8); IMMATURE GRANULOCYTES 0.2 %; IMMATURE GRANULOCYTES ABSOLUTE 0.01 10/3/uL (0.0-0.11); LYMPHOCYTES 25.2 %; MEAN CORPUS HGB CONC 33.4 g/dL (32.0-36.0); MEAN CORPUSCULAR HEMOGLOB 29.4 pg (26.0-34.0); MEAN PLATELET VOLUME 10.5 fL (9.2-13.0); MONOCYTES 7.1 %; MONOCYTES ABSOLUTE 0.45 10/3/uL (0.21-1.20); NEUTROPHILS 62.8 %; NEUTROPHILS ABSOLUTE 3.99 10/3/uL (2.02-8.40); PLATELET COUNT 208 10/3/uL (150-400); RBC DISTRIBUTION WIDTH 14.3 % (12.0-16.0); RED CELL COUNT 3.84 10/6/uL (4.7-6.1); WHITE BLOOD CELLS 6.4 10/3/uL (4.5-10.5)
[2017-01-03 12:00] LABS: MANUAL DIFF NO %
[2017-01-03 12:07] LABS: PARTIAL THROMBO TIME 36.5 SEC (22.5-37.2)
[2017-01-03 12:08] LABS: INTERNATIONAL NORMAL RATI 3.3 UNITS (-); PROTIME (NOT ORD) 33.2 SEC (12.0-14.5)
[2017-01-03 12:15] LABS: BUN (BLOOD UREA NITROGEN) 8 MG/DL (6-23); CALCIUM, SERUM 8.4 MG/DL (8.5-10.4); CHEST PAIN PROFILE TAT 0 Hrs 29 Mins; CHLORIDE, SERUM 108 MMOL/L (96-112); CO2 (CARBON DIOXIDE) 30 MMOL/L (24-34); CREATININE 0.78 MG/DL (0.70-1.30); GFR AFRICAN AMERICAN 101 ML/MIN (>=60); GFR NON AFRICAN AMERICAN 87 ML/MIN (>=60); GLUCOSE, SERUM 120 MG/DL (60-99); POTASSIUM, SERUM 3.8 MMOL/L (3.5-5.3); SODIUM, SERUM 142 MMOL/L (135-148); TROPONIN I 0.02 NG/ML (<0.05)
[2017-01-03] MEDS ORDERED: ZOL100 PO (13:49)
[2017-01-03] MEDS ORDERED: LANTUSCART SC (13:52)
[2017-01-03] MEDS ORDERED: NOVOPEN SC (13:52)
[2017-01-03] MEDS ORDERED: FLONASE NAS (13:52)
[2017-01-03] MEDS ORDERED: MULTIVIT/MIN PO (13:52)
[2017-01-03] MEDS ORDERED: VITAMIN D31000 UNIT PO (13:53)
[2017-01-03] MEDS ORDERED: DSS PO (13:53)
[2017-01-03] MEDS ORDERED: L20 PO (13:53)
[2017-01-03] MEDS ORDERED: ASAB PO (13:53)
[2017-01-03] MEDS ORDERED: LIPITOR40 PO (13:53)
[2017-01-03] MEDS ORDERED: SENTAB PO (13:54)
[2017-01-03] MEDS ORDERED: NEUR300 PO (13:54)
[2017-01-03] MEDS ORDERED: MUCINEX600 MG PO (13:54)
[2017-01-03] MEDS ORDERED: DUONEB INH (13:55)
[2017-01-03] MEDS ORDERED: MCZ25 PO (13:55)
[2017-01-03] MEDS ORDERED: NITROSTAT0.4 MG SL (13:55)
[2017-01-03] MEDS ORDERED: COREG3 PO (13:55)
[2017-01-03] MEDS ORDERED: REFRESH OPH (13:56)
[2017-01-03] MEDS ORDERED: VOLTAREN1 % TOP (13:56)
[2017-01-03] MEDS ORDERED: ZYRTEC ALLGY10 MG PO (13:56)
[2017-01-03] MEDS ORDERED: MELA3 PO (13:57)
[2017-01-03] MEDS ORDERED: ZOFRAN4 PO (13:57)
[2017-01-03] MEDS ORDERED: GLUCOSE TABLETS PO (13:58)
[2017-01-03] MEDS ORDERED: T PO (13:58)
[2017-01-03] MEDS ORDERED: GGEXPUD PO (13:59)
[2017-01-03] MEDS ORDERED: FLEXERIL5 MG PO (13:59)
[2017-01-03] MEDS ORDERED: C1 PO (13:59)
[2017-01-03] MEDS ORDERED: KLOR-CON M2020 MEQ PO (13:59)
[2017-01-03] MEDS ORDERED: NORCO1 TAB PO (14:00)
[2017-01-03] MEDS ORDERED: AMB5 PO (14:00)
[2017-01-04 04:47] LABS: BASOPHILS 0.7 %; BASOPHILS ABSOLUTE 0.06 10/3/uL (0.0-0.16); EOSINOPHILS 3.6 %; EOSINOPHILS ABSOLUTE 0.32 10/3/uL (0.0-0.53); HEMATOCRIT 34.8 % (40.0-51.0); HEMOGLOBIN 12.1 g/dL (13.6-17.8); IMMATURE GRANULOCYTES 0.3 %; IMMATURE GRANULOCYTES ABSOLUTE 0.03 10/3/uL (0.0-0.11); LYMPHOCYTES 24.9 %; LYMPHOCYTES ABSOLUTE 2.24 10/3/uL (0.67-4.30); MEAN CORPUS HGB CONC 34.8 g/dL (32.0-36.0); MEAN CORPUSCULAR HEMOGLOB 30.9 pg (26.0-34.0); MEAN CORPUSCULAR VOLUME 88.8 fL (80-100); MEAN PLATELET VOLUME 10.5 fL (9.2-13.0); MONOCYTES ABSOLUTE 0.63 10/3/uL (0.21-1.20); NEUTROPHILS 63.5 %; NEUTROPHILS ABSOLUTE 5.72 10/3/uL (2.02-8.40); PLATELET COUNT 209 10/3/uL (150-400); RBC DISTRIBUTION WIDTH 13.9 % (12.0-16.0); RED CELL COUNT 3.92 10/6/uL (4.7-6.1)
[2017-01-04 04:51] LABS: MANUAL DIFF NO %
[2017-01-04 04:55] LABS: INTERNATIONAL NORMAL RATI 2.8 UNITS (-); PROTIME (NOT ORD) 29.5 SEC (12.0-14.5)
[2017-01-04 05:09] LABS: BUN (BLOOD UREA NITROGEN) 9 MG/DL (6-23); CALCIUM, SERUM 8.7 MG/DL (8.5-10.4); CHLORIDE, SERUM 107 MMOL/L (96-112); CO2 (CARBON DIOXIDE) 28 MMOL/L (24-34); CREATININE 0.71 MG/DL (0.70-1.30); GFR AFRICAN AMERICAN 105 ML/MIN (>=60); GFR NON AFRICAN AMERICAN 91 ML/MIN (>=60); POTASSIUM, SERUM 3.8 MMOL/L (3.5-5.3); SODIUM, SERUM 141 MMOL/L (135-148); TROPONIN I 0.02 NG/ML (<0.05)
[2017-01-04 05:12] LABS: GLUCOSE, SERUM 147 MG/DL (60-99)
[2017-01-05 05:28] LABS: INTERNATIONAL NORMAL RATI 2.8 UNITS (-); PROTIME (NOT ORD) 29.5 SEC (12.0-14.5)
[2017-01-06 04:56] LABS: INTERNATIONAL NORMAL RATI 3.1 UNITS (-); PROTIME (NOT ORD) 31.3 SEC (12.0-14.5)
[2017-03-20] MEDS ORDERED: COUMADIN6 MG PO (20:18)
[2017-03-20] MEDS ORDERED: CRESTOR20 MG PO (20:19)
[2017-03-20] MEDS ORDERED: NORV10 PO (20:20)
[2017-03-20] MEDS ORDERED: IMDUR60 PO (20:20)
[2017-03-20] MEDS ORDERED: AT25 PO (20:23)
[2017-03-21] MEDS ORDERED: NORCO1 TA1 PO (15:07)
== END 2017-01-06 13:45 | disposition home or self-care (01) ==
LOC: ER 10:40 → CDU1 14:21
PROVIDERS: Emergency Medicine; Internal Medicine
DX: R07.89 Other chest pain (principal); I25.10 Atherosclerotic heart disease of native coronary artery without angina pectoris; I35.0 Nonrheumatic aortic (valve) stenosis; I65.22 Occlusion and stenosis of left carotid artery; G47.33 Obstructive sleep apnea (adult) (pediatric); G62.9 Polyneuropathy, unspecified; I48.0 Paroxysmal atrial fibrillation; E78.5 Hyperlipidemia, unspecified; I10 Essential (primary) hypertension; K21.9 Gastro-esophageal reflux disease without esophagitis; H54.7 Unspecified visual loss; K80.80 Other cholelithiasis without obstruction; K44.9 Diaphragmatic hernia without obstruction or gangrene; E11.9 Type 2 diabetes mellitus without complications; F32.9 Major depressive disorder, single episode, unspecified; Z86.010 Personal history of colon polyps; Z95.1 Presence of aortocoronary bypass graft; Z95.2 Presence of prosthetic heart valve; Z41.2 Encounter for routine and ritual male circumcision; Z98.890 Other specified postprocedural states; Z82.49 Family history of ischemic heart disease and other diseases of the circulatory system; Z88.0 Allergy status to penicillin; Z88.8 Allergy status to other drugs, medicaments and biological substances; Z79.01 Long term (current) use of anticoagulants; Z91.81 History of falling; Z79.82 Long term (current) use of aspirin; Z79.899 Other long term (current) drug therapy; Z79.51 Long term (current) use of inhaled steroids
CPT/HCPCS: 71010; 80048; 82962; 83735; 84484; 85025; 85610; 85730; 93005; 96374; 96376; 97162-GP; 99285; A9270-GY; G0378; J0360